=== PATIENT | female | born 1960 | race Hispanic/Latino ===

== ENCOUNTER 2018-08-03 07:51 | Day surgery (SDC) | payer OTHER ==
[~2018-08-03] VITALS: Ht 165.1 cm; Wt 104.3 kg
--- NOTE | ~2018-08-03 | OR ---
[facility] [address], [place] [address] Draft DATE OF OPERATION: SURGEON: Altagracia Barrera MD PREOPERATIVE DIAGNOSIS: 1. Subcutaneous indurated mass, left labia minora (1.5 x 4 cm). 2. Screening. POSTOPERATIVE DIAGNOSES: 1. A 12 mm polyp at 60 cm (tattoo). 2. 4 mm polyps x3 in cecum. 3. Left labia minora subcutaneous mass. PROCEDURES PERFORMED: Colonoscopy, snare polypectomy, hot biopsy and injection of tattoo. ESTIMATED BLOOD LOSS: None. INDICATIONS: Misa is a 57-year-old female who noticed for the last 3 months some firmness and swelling on the left labia minora. She said there is no pain and there is no blood. She said there is no drainage. No trauma to her knowledge. 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 There was some concern this could be a chronically inflamed indurated Bartholin's gland. However, it is extending back toward the anus more than usual. Consequently, she was asked to see me as a local general surgeon. On palpation, it is about 1.5 cm wide by about 4 cm long. The overlying mucosa is intact and unremarkable and it does not feel attached to the underlying sphincter muscles nor the perineal body. In addition, Misa has never had a colon screening colonoscopy. We did draw a CEA level and to my recollection, it was slightly elevated. We have ordered a CT scan of pelvis and she has not had that performed just yet. In the office, I had given them a pamphlet on colonoscopy and we looked at that together in detail. They understand the nature of the test along with the risks including, but not limited to gas bloating, crampy abdominal pain, bleeding, perforation, requiring surgery, and missed diagnosis. She also understands the need for IV conscious sedation. She had expressed understanding and wished to proceed. PROCEDURE IN DETAIL: Misa was taken into endoscopy suite and placed in the left lateral decubitus position. She was given divided doses of 10 mg of Versed and 200 mcg of fentanyl to cover the case. A digital rectal exam was performed and again this subcutaneous mass PATIENT NAME: MISA BRADLEY OPERATIVE REPORT DATE OF : 56 REPORT #: [id number] PHYSICIAN: ALTAGRACIA BARRERA MD PCP: Radha Davalos REPORT IS CONFIDENTIAL AND NOT TO BE RELEASED WITHOUT AUTHORIZATION [facility] [address], [place] [address] Draft does not extend into the rectum or anywhere near the dentate line. It does not seem to involve the underlying sphincter muscles nor the perineal body. It is quite indurated and a little tender but no drainage. The overlying mucosa is intact and quite unremarkable. She has good sphincter tone. After this, the adult colonoscope was introduced and advanced all around into the cecum under direct visualization of camera without difficulty. Her prep was quite good. The scope was then slowly withdrawn. She had three small polyps in the cecum, which we removed with the help of a hot biopsy forceps. Back at 60 cm, she had about a 12 mm tri-lobed polyp which we removed with the help of the hot biopsy forceps and the snare polypectomy. We had injected some tattoo immediately next to that location. The rest of the colon and rectum were unremarkable. Upon retroflexion of the scope, there was no additional pathology noted above the anal canal except for some routine hemorrhoid tissue. The gas was then suctioned out. The colonoscope removed. Misa tolerated the procedure quite well. RECOMMENDATIONS: I will see Misa back in my office in 1-2 weeks once she has the CT scan of her pelvis completed. Altagracia Barrera MD ALB/MODL /[id number] cc: BLANK Garrett MD Copies: Radha Davalos PATRICIA J MD ~ PATIENT NAME: MISA BRADLEY OPERATIVE REPORT DATE OF : 56 REPORT #: [id number] PHYSICIAN: ALTAGRACIA BARRERA MD PCP: Radha Davalos REPORT IS CONFIDENTIAL AND NOT TO BE RELEASED WITHOUT AUTHORIZATION
[~2018-08-03 07:51] MED LIST: FLONASE ALLERG9.9 ML NAS; IBU600 MG PO; LISINOPRIL10 MG PO; PEPCID40 MG PO; PROAIR HFA8.5 GM INH; SIMVASTATIN20 MG PO
[2018-08-03] MEDS ORDERED: TYLENOL325 M1 PO (08:13)
--- NOTE | 2018-08-03 10:20 | NUR ---
08/03/18 Kristopher0 Michelle Au 1014- PT ARRIVES TO PACU AROUSABLE TO VOICE. PT REPORTS NO PAIN OR NAUSEA AND INSTANTLY FALLS BACK TO SLEEP. RESP EVEN AND UNLABORED. OXYGEN SAT HIGH 90'S ON 2L VIA NC.
== END 2018-08-03 11:14 | disposition home or self-care (01) ==
LOC: OPS 07:51 → DS 07:51 → OPS 09:00 → DS 10:30 → OPS 11:14
PROVIDERS: Colon & Rectal Surgery
PROC: 0DBH8ZZ Excision of Cecum, Via Natural or Artificial Opening Endoscopic (ICD-10-PCS; 2018-08-03)
PROC: 0DBE8ZZ Excision of Large Intestine, Via Natural or Artificial Opening Endoscopic (ICD-10-PCS; 2018-08-03)
PROC: 3E0H8GC Introduction of Other Therapeutic Substance into Lower GI, Via Natural or Artificial Opening Endoscopic (ICD-10-PCS; principal; 2018-08-03 09:00)
DX: Z12.11 Encounter for screening for malignant neoplasm of colon (principal); D12.0 Benign neoplasm of cecum; D12.6 Benign neoplasm of colon, unspecified; N90.89 Other specified noninflammatory disorders of vulva and perineum; I10 Essential (primary) hypertension; K21.9 Gastro-esophageal reflux disease without esophagitis; E78.2 Mixed hyperlipidemia; E66.01 Morbid (severe) obesity due to excess calories; E03.9 Hypothyroidism, unspecified; Z79.1 Long term (current) use of non-steroidal anti-inflammatories (NSAID); Z79.899 Other long term (current) drug therapy; Z68.38 Body mass index [BMI] 38.0-38.9, adult
CPT/HCPCS: 99153; G0500; J2250; J3010; J7120

== ENCOUNTER 2018-09-27 10:03 | Emergency (ER) | payer OTHER ==
[~2018-09-27] VITALS: Ht 165.1 cm; Wt 104.3 kg
[~2018-09-27 10:03] MED LIST changes: +TYLENOL325 M1 PO
--- NOTE | 2018-09-28 12:47 | ER ---
[facility] [address] [facility] [place], [place] [address] Signed DATE OF SERVICE: 09/27/2018 HISTORY OF PRESENT ILLNESS: The patient is a 57-year-old female known to me from the office, who has had a labial and perineal/perianal mass, which has been increasing in size over the past several months. She was evaluated in our office and was referred to General Surgery as the mass encroached upon the rectum. General surgery performed a colonoscopy, which was negative. She was then referred to [facility] for further evaluation, but she was never contacted by them. She has been having increasing perineal pain over the last week and today she noted stool per vagina. She has also had some vaginal bleeding. 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 The patient had been scheduled for hysteroscopy for evaluation of her bleeding as well as a biopsy of the labial lesion this coming week. PHYSICAL EXAMINATION: VITAL SIGNS: Stable. She is afebrile. GENERAL: She is a well-developed, well-nourished female in no acute distress. She is Erit[place]an-speaking. She is somewhat anxious. Her friend accompanies her and is her an spanish interpreter/translator. GENITOURINARY: On exam, the perineum was found to have a mass down the left labia and into the left perianal area. There was obvious disruption of the vagina of the mucosa approximately 1.5 cm in length. This was at the distal portion of the vagina. There is obvious stool seen. On rectal exam, the rectal mucosa is mostly intact, but there is a fistula visible to her left. After discussion with the patient, the decision was made to proceed with a labial biopsy. The lower aspect perianal area was prepped with Betadine, injected with 1% lidocaine plain and a punch biopsy obtained. The base was treated with Monsel's solution. She did tolerate the procedure well. 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 PLAN: Check a biopsy. We will refer to [facility], Colorectal Service for further evaluation and treatment. Recommend frequent sitz baths. Maintain firm stools. [place] #40 are written today and hydroxyzine prescribed as well for her anxiety. Celestina Ness MD Electronically Signed By: CELESTINA NESS MD 09/28/18 1247 PATIENT NAME: MISA BRADLEY EMERGENCY ROOM REPORT DATE OF : 56 REPORT #: [id number] PHYSICIAN: CELESTINA NESS MD PCP: Radha Davalos REPORT IS CONFIDENTIAL AND NOT TO BE RELEASED WITHOUT AUTHORIZATION [address] [place], [place] [address] Signed RANGEL/SHAYYL /[id number] cc: BLANK Garrett MD Copies: Radha Davalos ANDREW L MD ~ Electronically Signed By: CELESTINA NESS MD 09/28/18 1247 PATIENT NAME: RICH PETTYEdnaMISA EMERGENCY ROOM REPORT DATE OF : 56 REPORT #: [id number] PHYSICIAN: CELESTINA NESS MD PCP: Radha Davalos REPORT IS CONFIDENTIAL AND NOT TO BE RELEASED WITHOUT AUTHORIZATION
== END 2018-09-27 11:44 | disposition home or self-care (01) ==
LOC: ED 10:03
DX: N90.89 Other specified noninflammatory disorders of vulva and perineum (principal); E03.9 Hypothyroidism, unspecified; E78.00 Pure hypercholesterolemia, unspecified; Z79.899 Other long term (current) drug therapy
CPT/HCPCS: 99283

== ENCOUNTER 2024-01-17 01:13 | Emergency (ER) | payer MEDICARE, OTHER ==
[~2024-01-17] VITALS: Ht 157.5 cm; Wt 110.0 kg
[~2024-01-17 01:13] MED LIST changes: +AMOX TR-K CLV1 EAC1 PO; +CEFDINIR300 MG PO; +DIFLUCAN200 MG PO
--- OUTSIDE RECORDS SUMMARY | 2024-01-17 01:26 | XMS ---
PreManage Notification: MISA BRADLEY Security Family Services Specialist Events No recent Security Events currently on file CRITERIA MET - 6 ED Visits in 6 Months - [facility] - 2 Visits in 30 Days CARE PROVIDERS -, [facility] Dentist: Gun Stock Checker [facility] PHONE: [phone] -Chris- Dentist: Gun Stock Checker [facility] PHONE: [phone] ELISABET RALPH Elisabet/[place]: [facility] Current MEDICAL PHONE: [phone] BELÉN Good MD, SPENCER Search And Rescue Officer/Utility Mechanic Current PHONE: [phone] DAVID GABRIEL Physician Current PHONE: [phone] Izzy has no Care Guidelines for this patient. Deepti VISIT COUNT (12 MO.) 5 [facility] T[facility] NOTE: Visits indicate total known visits. ED/UCC VISIT TRACKING (12 MO.) 01/17/2024 01:14 [facility] [place] TYPE: Emergency COMPLAINT: - POSS UTI 12/19/2023 08:49 [facility] [place] TYPE: Emergency COMPLAINT: - URINE PROBLEM DIAGNOSES: - Allergy status to sulfonamides - Dysuria - Other [place] [facility] (current) drug therapy - Urinary tract infection, site not specified 11/20/2023 04:39 [facility] [place] TYPE: Emergency COMPLAINT: - ALLERGIC REACTION DIAGNOSES: - Adverse effect of sulfonamides, initial encounter - Allergy status to sulfonamides - Localized skin eruption due to drugs and medicaments taken internally - Other superintendent container terminal (current) drug therapy - Rash and other nonspecific skin eruption 11/15/2023 10:42 [facility] [place] TYPE: Emergency COMPLAINT: - URINE PROBLEM DIAGNOSES: - Dysuria - Non-Hodgkin lymphoma, unspecified, unspecified site - Other superintendent container terminal (current) drug therapy - Secondary malignant neoplasm of brain - Urinary tract infection, site not specified 09/20/2023 08:31 [facility] [place] TYPE: Emergency COMPLAINT: - LOWER ABD PAIN DIAGNOSES: - Abnormal radiologic findings on diagnostic imaging of renal pelvis, ureter, or bladder - Candidiasis of skin and nail - Hypothyroidism, unspecified - superintendent container terminal (current) use of inhaled steroids - Lower abdominal pain, unspecified - Other [place] [facility] (current) drug therapy - Pure hypercholesterolemia, unspecified 09/13/2023 09:39 [facility] [place] TYPE: Emergency DIAGNOSES: - Cystitis, unspecified with hematuria - UTI 02/22/2023 07:58 [facility] [place] TYPE: Emergency DIAGNOSES: - Acute upper respiratory infection, unspecified - Urinary tract infection, site not specified - cough fever INPATIENT VISIT TRACKING (12 MO.) 08/31/2023 12:00 [facility] MIKO We[facility] TYPE: Oncology DIAGNOSES: - Body mass index [BMI] 40.0-44.9, adult - Diarrhea, unspecified - Essential (primary) hypertension - Morbid (severe) obesity due to excess calories - Other specified hypothyroidism - Other specified types of non-Hodgkin lymphoma, extranodal and solid organ sites - Personal history of pulmonary embolism - Toxic gastroenteritis and colitis - Unspecified atrial fibrillation 07/27/2023 13:14 [facility] TYPE: Oncology DIAGNOSES: - Difficulty in walking, not elsewhere classified - Encounter for attention to colostomy - Essential (primary) hypertension - Hypokalemia - Malignant neoplasm of vagina - Other specified hypothyroidism - Other specified types of non-Hodgkin lymphoma, extranodal and solid organ sites - Personal history of pulmonary embolism - Pure hypercholesterolemia, unspecified - Toxic gastroenteritis and colitis - Unspecified atrial fibrillation 06/29/2023 12:00 [facility] [place] TYPE: Oncology DIAGNOSES: - Essential (primary) hypertension - Hypokalemia - Hypothyroidism, unspecified - Other specified types of non-Hodgkin lymphoma, extranodal and solid organ sites - Presence of other vascular implants and grafts - Pure hypercholesterolemia, unspecified - Toxic gastroenteritis and colitis - Unspecified atrial fibrillation 06/01/2023 12:56 [facility] [place] TYPE: Oncology DIAGNOSES: - Anxiety disorder, unspecified - Diarrhea, unspecified - Encounter for attention to colostomy - Essential (primary) hypertension - Fistula of vagina to large intestine - Hyperlipidemia, unspecified - Hypokalemia - Hypothyroidism, unspecified - Malignant neoplasm of vagina - Other disorders of plasma-protein metabolism, not elsewhere classified - Other specified hypothyroidism - Other specified types of non-Hodgkin lymphoma, extranodal and solid organ sites - Personal history of pulmonary embolism - Presence of other vascular implants and grafts - Pure hypercholesterolemia, unspecified - Toxic gastroenteritis and colitis - Unspecified atrial fibrillation 05/04/2023 13:03 [facility] [place] TYPE: Oncology DIAGNOSES: - Adverse effect of antineoplastic and immunosuppressive drugs, initial encounter - Anemia due to antineoplastic chemotherapy - Diarrhea, unspecified - Essential (primary) hypertension - Hypokalemia - Morbid (severe) obesity due to excess calories - Other specified hypothyroidism - Other specified types of non-Hodgkin lymphoma, extranodal and solid organ sites - Presence of other vascular implants and grafts - Pure hypercholesterolemia, unspecified - Rash and other nonspecific skin eruption - Toxic gastroenteritis and colitis - Unspecified atrial fibrillation 04/06/2023 13:08 [facility] [place] [facility] TYPE: Oncology DIAGNOSES: - Encounter for antineoplastic chemotherapy - Essential (primary) hypertension - Hypokalemia - Hypotension, unspecified - Other specified hypothyroidism - Other specified types of non-Hodgkin lymphoma, extranodal and solid organ sites - Personal history of pulmonary embolism - Presence of other vascular implants and grafts - Pure hypercholesterolemia, unspecified - Rash and other nonspecific skin eruption - Toxic gastroenteritis and colitis 03/09/2023 13:26 [facility] [place] TYPE: Oncology DIAGNOSES: - Essential (primary) hypertension - Hypokalemia - Other specified hypothyroidism - Other specified types of non-Hodgkin lymphoma, extranodal and solid organ sites - Pure hypercholesterolemia, unspecified - Rash and other nonspecific skin eruption - Toxic gastroenteritis and colitis - Unspecified atrial fibrillation 01/26/2023 13:11 [facility] TYPE: Oncology DIAGNOSES: - Encounter for antineoplastic chemotherapy - Essential (primary) hypertension - Other specified hypothyroidism - Other specified types of non-Hodgkin lymphoma, extranodal and solid organ sites - Pure hyperglyceridemia - Toxic gastroenteritis and colitis - Unspecified atrial fibrillation [email or web address]
[2024-01-17 01:51] LABS: HEMOGLOBIN 12.3 g/dL (12.0-18.0)
[2024-01-17 01:53] LABS: BASOPHILS 1.2 % (0-2); EOSINOPHILS 4.9 % (0-6); HEMATOCRIT 37.9 % (35.0-50.0); LYMPHOCYTES 24.9 % (24-44); MCH 27.9 (27-36); MCHC 32.4 g/dl (30-36); MONOCYTES 18.2 % (0-12); NEUTROPHILS 50.8 % (39-80); PLATELET COUNT 275 K/uL (140-440); RBC 4.41 M/ul (4.3-5.7); RDW 16.7 (10.5-15.0)
[2024-01-17 02:06] LABS: ALBUMIN 2.7 g/dL (3.4-5.0); ALBUMIN/GLOBULIN RATIO 0.79 (1.1-2.4); ANION GAP 10.5 (7-21); BILIRUBIN, TOTAL 0.4 ng/dL (0.2-1.0); BUN/CREATININE RATIO 16.66 (6.0-28.6); CALCIUM 8.8 mg/dL (8.5-10.1); CREATININE, SERUM 0.72 mg/dL (0.55-1.02); POTASSIUM 3.5 mmol/L (3.5-5.1); PROTEIN, TOTAL 6.1 g/dL (6.4-8.2)
[2024-01-17 02:09] LABS: BILIRUBIN, URINE NEGATIVE (negative); BLOOD/HGB, URINE MODERATE (Negative); KETONE, URINE NEGATIVE (Negative); LEUK ESTERASE, URINE LARGE (negative); NITRITE, URINE NEGATIVE (negative); PH, URINE 6.5 (5-7)
[2024-01-17 02:14] LABS: EPITHELIAL CELLS, URINE SQUAMOUS 1+ /lpf (0-1+)
[2024-01-17 02:15] LABS: BACTERIA, URINE 1+ /hpf (negative); CASTS, URINE NONE SEEN \\lpf; COLLECTION TYPE, URINE CLEAN CATCH; CRYSTALS, URINE NONE SEEN (0-1+); WHITE BLOOD CELLS, URINE >50 /HPF (0-5)
[2024-01-17] MEDS ORDERED: CEFTRIAXONE/SODIUM CHLORIDE 2 GM/100 ML PIGGYBACK IV ONE (02:15)
[2024-01-17] MEDS ORDERED: PHENAZOPYRIDINE HCL 95 MG TAB PO ONE (02:15)
[2024-01-17 02:16] LABS: REFLEX CULTURE, URINE Yes (No)
[2024-01-17] MEDS ORDERED: ERTAPENEM SODIUM 1 GM in SODIUM CHLORIDE 0.9% 50 ML IV ONE (03:45)
[2024-01-17] MEDS ORDERED: ERTAPENEM SODIUM 1 GM/10 ML VIAL ONE (03:48)
[2024-01-17] MEDS ORDERED: PYRIDIUM100 MG PO (03:49)
[2024-01-17 04:47] VITALS: BP 128/75
== END 2024-01-17 04:51 | disposition home or self-care (01) ==
LOC: ED 01:13
PROVIDERS: Internal Medicine
DX: N39.0 Urinary tract infection, site not specified (principal); C85.90 Non-Hodgkin lymphoma, unspecified, unspecified site; Z88.2 Allergy status to sulfonamides; Z79.899 Other long term (current) drug therapy
CPT/HCPCS: 36415; 80053; 81001; 85025; 87077; 87088; 87186; 96365; 96375; 99283-25; J0696; J1335

== ENCOUNTER 2024-02-06 10:46 | Emergency (ER) | payer MEDICARE, OTHER ==
[~2024-02-06 10:46] MED LIST changes: +PYRIDIUM100 MG PO
--- OUTSIDE RECORDS SUMMARY | 2024-02-06 10:49 | XMS ---
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 Events No recent Security Events currently on file CRITERIA MET - 6 ED Visits in 6 Months - [facility] - 2 Visits in 30 Days CARE PROVIDERS -, [facility] Dentist: Pathologist Assistant [facility] PHONE: [phone] -Chris- Dentist: Pathologist Assistant [facility] PHONE: [phone] ELISABET LEAWOOD Elisabet/[place]: [facility] Current MEDICAL PHONE: [phone] BELÉN Good MD, SPENCER Sourcing Internship/Highway Construction Inspector Current PHONE: [phone] DAVID GABRIEL Physician Current PHONE: [phone] Izzy has no Care Guidelines for this patient. Deepti VISIT COUNT (12 MO.) Kevin Dave 2 [facility] [place] [facility] TOTAL 8 NOTE: Visits indicate total known visits. ED/UCC VISIT TRACKING (12 MO.) 02/06/2024 10:47 [facility] [place] TYPE: Emergency COMPLAINT: - URINE PROBLEM 01/17/2024 01:14 [facility] [place] TYPE: Emergency COMPLAINT: - POSS UTI DIAGNOSES: - Allergy status to sulfonamides - Non-Hodgkin lymphoma, unspecified, unspecified site - Other assisted (current) drug therapy - Urinary tract infection, site not specified 12/19/2023 08:49 [facility] [place] TYPE: Emergency COMPLAINT: - URINE PROBLEM DIAGNOSES: - Allergy status to sulfonamides - Dysuria - Other assisted (current) drug therapy - Urinary tract infection, site not specified 11/20/2023 04:39 [facility] [place] TYPE: Emergency COMPLAINT: - ALLERGIC REACTION DIAGNOSES: - Adverse effect of sulfonamides, initial encounter - Allergy status to sulfonamides - Localized skin eruption due to drugs and medicaments taken internally - Other rn long term care (current) drug therapy - Rash and other nonspecific skin eruption 11/15/2023 10:42 [facility] [place] TYPE: Emergency COMPLAINT: - URINE PROBLEM DIAGNOSES: - Dysuria - Non-Hodgkin lymphoma, unspecified, unspecified site - Other rn long term care (current) drug therapy - Secondary malignant neoplasm of brain - Urinary tract infection, site not specified 09/20/2023 08:31 [facility] [place] TYPE: Emergency COMPLAINT: - LOWER ABD PAIN DIAGNOSES: - Abnormal radiologic findings on diagnostic imaging of renal pelvis, ureter, or bladder - Candidiasis of skin and nail - Hypothyroidism, unspecified - terminal make up operator (current) use of inhaled steroids - Lower abdominal pain, unspecified - Other assisted (current) drug therapy - Pure hypercholesterolemia, unspecified 09/13/2023 09:39 [facility] [place] TYPE: Emergency DIAGNOSES: - Cystitis, unspecified with hematuria - UTI 02/22/2023 07:58 [facility] [place] TYPE: Emergency DIAGNOSES: - Acute upper respiratory infection, unspecified - Urinary tract infection, site not specified - cough fever INPATIENT VISIT TRACKING (12 MO.) 08/31/2023 12:00 [facility] [place] TYPE: Oncology DIAGNOSES: - Body mass index [BMI] 40.0-44.9, adult - Diarrhea, unspecified - Essential (primary) hypertension - Morbid (severe) obesity due to excess calories - Other specified hypothyroidism - Other specified types of non-Hodgkin lymphoma, extranodal and solid organ sites - Personal history of pulmonary embolism - Toxic gastroenteritis and colitis - Unspecified atrial fibrillation 07/27/2023 13:14 [facility] [place] TYPE: Oncology DIAGNOSES: - Difficulty in walking, [...] colitis - Unspecified atrial fibrillation 06/29/2023 12:00 [facility] TYPE: Oncology DIAGNOSES: - Essential (primary) hypertension - Hypokalemia - Hypothyroidism, unspecified - Other specified types of non-Hodgkin lymphoma, extranodal and solid organ sites - Presence of other vascular implants and grafts - Pure hypercholesterolemia, unspecified - Toxic gastroenteritis and colitis - Unspecified atrial fibrillation 06/01/2023 12:56 [facility] TYPE: Oncology DIAGNOSES: - Anxiety disorder, unspecified [...] colitis - Unspecified atrial fibrillation [facility] DI[facility]: - Adverse effect of [...] colitis - Unspecified atrial fibrillation 04/06/2023 13:08 [facility] DIAGNOSES: - Encounter for antineoplastic [...] - Toxic gastroenteritis and colitis 03/09/2023 13:[facility] DIAGNOSES: - Essential (primary) hypertension - Hypokalemia - Other specified hypothyroidism - Other specified types of non-Hodgkin lymphoma, extranodal and solid organ sites - Pure hypercholesterolemia, unspecified - Rash and other nonspecific skin eruption - Toxic gastroenteritis and colitis - Unspecified atrial fibrillation [email or web address]
[2024-02-06 11:45] LABS: BILIRUBIN, URINE NEGATIVE (negative); BLOOD/HGB, URINE SMALL (Negative); KETONE, URINE NEGATIVE (Negative); LEUK ESTERASE, URINE LARGE (negative); NITRITE, URINE POSITIVE (negative)
[2024-02-06 11:52] LABS: RED BLOOD CELLS, URINE 0-1 /hpf (0-5); WHITE BLOOD CELLS, URINE >50 /HPF (0-5)
[2024-02-06 11:53] LABS: BACTERIA, URINE 1+ /hpf (negative); CASTS, URINE NONE SEEN \\lpf; COLLECTION TYPE, URINE CLEAN CATCH; CRYSTALS, URINE NONE SEEN (0-1+); EPITHELIAL CELLS, URINE SQUAMOUS 1+ /lpf (0-1+); REFLEX CULTURE, URINE Yes (No)
[2024-02-06] MEDS ORDERED: CEFIXIME400 MG PO (14:33)
[2024-02-06] MEDS ORDERED: PYRIDIUM200 MG PO (14:33)
[2024-02-06 14:48] VITALS: BP 128/72
== END 2024-02-06 14:48 | disposition home or self-care (01) ==
LOC: ED 10:46
PROVIDERS: Emergency Medicine
DX: N39.0 Urinary tract infection, site not specified (principal); B96.4 Proteus (mirabilis) (morganii) as the cause of diseases classified elsewhere; E78.00 Pure hypercholesterolemia, unspecified; E03.9 Hypothyroidism, unspecified; C85.90 Non-Hodgkin lymphoma, unspecified, unspecified site; C79.31 Secondary malignant neoplasm of brain; Z88.2 Allergy status to sulfonamides; Z79.899 Other long term (current) drug therapy; Z87.440 Personal history of urinary (tract) infections
CPT/HCPCS: 81001; 87088; 99283

== ENCOUNTER 2024-07-17 10:50 | Emergency (ER) | payer MEDICARE, OTHER ==
[~2024-07-17] VITALS: Ht 157.5 cm; Wt 119.7 kg
[~2024-07-17 10:50] MED LIST changes: +CEFIXIME400 MG PO; +ELIQUIS5 MG PO; +ESTRADIOL1 G2 PV; +MACROBID 100 M100 MG PO; +PYRIDIUM200 MG PO; +TRAZODONE HCL50 MG PO
[2024-07-17 11:25] LABS: BILIRUBIN, URINE NEGATIVE (negative); BLOOD/HGB, URINE NEGATIVE (Negative); KETONE, URINE TRACE (Negative); LEUK ESTERASE, URINE LARGE (negative); NITRITE, URINE POSITIVE (negative)
[2024-07-17 11:27] LABS: CRYSTALS, URINE NONE SEEN (0-1+); EPITHELIAL CELLS, URINE SQUAMOUS 1+ /lpf (0-1+); WHITE BLOOD CELLS, URINE >50 /HPF (0-5)
[2024-07-17 11:28] LABS: BACTERIA, URINE 2+ /hpf (negative); CASTS, URINE NONE SEEN \\lpf; COLLECTION TYPE, URINE CLEAN CATCH; REFLEX CULTURE, URINE Yes (No)
[2024-07-17] MEDS ORDERED: CEFDINIR300 MG PO (11:36)
[2024-07-17 11:45] VITALS: BP 120/64
[2024-07-17] MEDS ORDERED: CEFDINIR 300 MG CAP PO ONE (11:45)
== END 2024-07-17 11:47 | disposition home or self-care (01) ==
LOC: ED 10:50
PROVIDERS: Emergency Medicine
DX: N39.0 Urinary tract infection, site not specified (principal); Z79.01 Long term (current) use of anticoagulants; Z79.899 Other long term (current) drug therapy; Z88.2 Allergy status to sulfonamides
CPT/HCPCS: 81001; 87088; 99283